=== PATIENT | male | born 1985 ===

== ENCOUNTER 2020-02-15 08:56 | Emergency (ER) | payer OTHER, SELFPAY ==
[2020-02-15 09:10] VITALS: BP 109/61; PULSE 71; RESP 14; TEMP 36.7; O2SAT 97; BMI 22.6
[2020-02-15 09:25] VITALS: BP 101/63; PULSE 72; RESP 14; O2SAT 98
--- NOTE | 2020-02-15 09:30 | W.ED.CHESTPA ---
HPI - Chest Pain General: Chief Complaint: Chest Pain Stated Complaint: chest pain Time Seen by Provider: 02/15/20 09:22 History of Present Illness: HPI narrative: 34-year-old male presents emergency room complaining of chest pain. 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 Began while he was working is reproducible with palpation on the lower portion of the chest its not associated with any radiation of arm pain he is not had any nausea vomiting or diarrhea no diaphoresis. He has no personal history of diabetes hypertension or hyperlipidemia. MD complaint: chest pain Onset (ago): minute(s) Timing of current episode: episodic Prior episodes: No Onset: during exertion Pain location: subxiphoid Pain radiation: none Severity: mild Quality: sharp Relieving factors: rest Exacerbating factors: palpation Associated symptoms: Deny abdominal pain, diaphoresis, dyspnea, fever(s), leg edema, nausea, palpitations, sense of impending doom, syncope or vomiting Review of Systems Const: Denies: fever(s) or diaphoresis ENMT: Denies: throat pain, ear or mastoid pain, nasal discharge or nasal congestion Card: Denies: palpitations or syncope Resp: Denies: dyspnea GI: Denies: abdominal pain, nausea or vomiting : Denies: flank pain, dysuria, urinary frequency or urinary urgency Skin/Breast: Denies: rash or pruritus Physical Exam Const: COMMON NORMALS: no acute distress GENERAL APPEARANCE: cooperative and comfortable ORIENTATION/CONSCIOUSNESS: Yes awake, Yes oriented to person, Yes oriented to place and Yes oriented to time HENMT: COMMON NORMALS: normocephalic, atraumatic and hearing grossly normal bilaterally HEAD & SCALP: normocephalic and atraumatic Neck/C-Spine: COMMON NORMALS: no JVD Resp: COMMON NORMALS: normal respiratory effort, No retractions, No use of accessory muscles and clear to auscultation bilaterally AUSCULTATION: clear to auscultation bilaterally Cardio: COMMON NORMALS: no JVD, regular rate, regular rhythm and No murmurs present (Cardio) RATE: regular rate RHYTHM: regular rhythm GI: COMMON NORMALS: Soft to palpation and No hepatosplenomegaly present AUSCULTATION: Yes normoactive bowel sounds PALPATION: Yes Soft to palpation, No Tenderness to palpation present (GI), No Guarding due to palpation present (GI) and Yes No hepatosplenomegaly present Extremity: COMMON NORMALS: normal to inspection, capillary refill normal, no clubbing, cyanosis or edema, no calf tenderness and no pedal edema Neuro: SENSORIUM/ORIENTATION: Yes oriented to person, Yes oriented to place and Yes oriented to time Skin: COMMON NORMALS: no rashes or lesions noted GENERAL SKIN EXAM: no rashes or lesions noted Course Vital Signs: Vital signs: Vital Signs Temperature 98.1 F 02/15/20 09:10 Pulse Rate 64 02/15/20 11:00 Respiratory Rate 17 02/15/20 11:00 Blood Pressure 108/62 02/15/20 11:00 Pulse Oximetry 98 02/15/20 11:00 MDM - Chest Pain MDM Narrative: Medical decision making narrative: Due to findings chest pain reproducible will discharge home Lab Data: Labs: Lab Results 02/15/20 02/15/20 Range/Units 09:30 09:30 WBC 7.5 (4.0-10.0) 10^3/ uL RBC 4.79 (4.1-5.3) 10^6/u L Hgb 14.3 (11.7-16.6) g/dL Hct 44.5 (42.0-52.0) % MCV 92.9 (80-94) fL MCH 29.9 (28.0-34.0) pg MCHC 32.1 (30.0-36.0) g/dL RDW 12.8 (12.1-15.1) % Plt Count 397 (130-400) 10^3/c mm MPV 10.1 (7.4-10.4) fL Neut % (Auto) 61.5 % Lymph % (Auto) 26.2 % [place] % (Auto) 6.3 % Eos % (Auto) 5.0 % Baso % (Auto) 0.7 % Neut # (Auto) 4.59 (1.8-7.7) 10^3/u L Lymph # (Auto) 2.0 (0.8-4.8) 10^3/u L [place] # (Auto) 0.5 (0.2-0.9) 10^3/u L Eos # (Auto) 0.4 (0.0-0.8) 10^3/u L Baso # (Auto) 0.1 (0.0-0.1) 10^3/u L Nucleated RBC % (a uto) 0 % Nucleated RBCs # 0.0 /100WBC Sodium 140 (136-145) mmol/L Potassium 4.2 (3.5-5.1) mmol/L Chloride 106 (98-107) mmol/L Carbon Dioxide 25 (22-29) mmol/L Anion Gap 13.2 (5-19) BUN 10 (6-20) mg/dL Creatinine 0.9 (0.7-1.2) mg/dL GFR Calculation 97.2 (90-130) mL/min Glucose 94 (65-115) mg/dL Calculated Osmolal ity 289 (285-295) mOsm/k g Calcium 9.5 (8.5-10.5) mg/dL Total Bilirubin 0.2 (0.15-1.2) mg/dL AST 16 (0-40) U/L ALT 24 (0-41) U/L Alkaline Phosphata se 72 (40-130) IU/L Total Protein 6.9 (6.6-8.7) g/dL Albumin 4.6 (3.5-5.2) g/dL Globulin 2.3 (1.3-4.6) g/dL Discharge Plan Discharge Patient Disposition: Home Clinical Impression: Acute chest wall pain Condition: Stable Prescriptions: New diclofenac sodium 75 mg tablet,delayed release (DR/EC) 75 mg PO Q12H PRN (Reason: pain) Qty: 20 RF: 0 Discharge Orders: Discharge Order (Routine); Ordered 02/15/20 Ordered By: Juan Luis Daniels Discharge Diet: Usual diet Discharge Activity: Increase activity as tolerated Activity Restrictions/Additional Instructions: Return if you have worsening problems. Stand Alone Forms: Work/School Release Discharge Date/Time: 02/15/20 11:00 Coding Level of Care Code ED Car Racer for Liz Fwd Exam Comprehensive
--- NOTE | 2020-02-15 09:49 | ECG_ITS ---
[facility] Test Date: 2020-02-15 Pat Name: Eduardo Duenas Department: Room: Gender: Male [employer] Driver: : 1985 Requested By: Juan Luis Brito Order Number: [id number] Merlin MD: Jordan Blanchard M.D. Measurements Intervals [place] Rate: 74 P: 86 IA: 123 QRS: 84 QRSD: 97 T: 70 QT: 361 QTc: 403 Interpretive Statements SINUS RHYTHM WITH SINUS ARRHYTHMIA No previous ECG available for comparison Electronically Signed On 02-15-2020 21:32:15 CDT by Jordan Blanchard M.D. [email or web address]
--- NOTE | 2020-02-15 09:49 | XR_ITS ---
WS: [id number] CHEST XRAY TECHNIQUE: Portable chest. CLINICAL INFORMATION: dyspnea/cough COMPARISON: None. FINDINGS: Heart: Normal cardiac silhouette. Lungs: Lungs are clear. No consolidation or pleural effusion. Bones: Normal visualized bony structures. XR/XR chest 1V portable [id number] IMPRESSION: Normal chest
[2020-02-15 09:59] LABS: Basophils # 0.1 10^3/uL (0.0-0.1); Basophils % 0.7 %; Eosinophils # 0.4 10^3/uL (0.0-0.8); Hematocrit 44.5 % (42.0-52.0); Hemoglobin 14.3 g/dL (11.7-16.6); Lymphocytes % 26.2 %; Mean Corpuscular HGB Conc 32.1 g/dL (30.0-36.0); Mean Corpuscular Hemoglobin 29.9 pg (28.0-34.0); Mean Corpuscular Volume 92.9 fL (80-94); Mean Platelet Volume 10.1 fL (7.4-10.4); Monocytes # 0.5 10^3/uL (0.2-0.9); Monocytes % 6.3 %; Neutrophils # 4.59 10^3/uL (1.8-7.7); Neutrophils % 61.5 %; Nucleated Red Blood Cells % 0 %; Platelet Count 397 10^3/cmm (130-400); Red Blood Count 4.79 10^6/uL (4.1-5.3); Red Cell Distribution Width 12.8 % (12.1-15.1); White Blood Count 7.5 10^3/uL (4.0-10.0)
[2020-02-15 10:14] LABS: Alanine Aminotransferase 24 U/L (0-41); Albumin Level 4.6 g/dL (3.5-5.2); Alkaline Phosphatase 72 IU/L (40-130); Anion Gap 13.2 (5-19); Aspartate Amino Transferase 16 U/L (0-40); Blood Urea Nitrogen 10 mg/dL (6-20); Calcium 9.5 mg/dL (8.5-10.5); Carbon Dioxide 25 mmol/L (22-29); Chloride 106 mmol/L (98-107); Globulin 2.3 g/dL (1.3-4.6); Glomerular Filtration Rate 97.2 mL/min (90-130); Glucose 94 mg/dL (65-115); Osmolality Calculated 289 mOsm/kg (285-295); Potassium 4.2 mmol/L (3.5-5.1); Sodium 140 mmol/L (136-145); Total Bilirubin 0.2 mg/dL (0.15-1.2); Total Protein 6.9 g/dL (6.6-8.7)
[2020-02-15 10:15] VITALS: BP 116/66; PULSE 68; RESP 18; O2SAT 98
[2020-02-15 11:00] VITALS: BP 108/62; PULSE 64; RESP 17; O2SAT 98
== END 2020-02-15 11:00 | disposition home or self-care (01) ==
PROVIDERS: Emergency Provider Family Medicine
DX: R07.89 Other chest pain (principal)
CPT/HCPCS: 12345; 71045; 80053; 85025; 93005; 99283

== ENCOUNTER 2020-02-22 15:35 | Emergency (ER) | payer OTHER, SELFPAY ==
[2020-02-22 15:50] VITALS: PULSE 81; RESP 17; TEMP 36.7; O2SAT 97; BMI 22.6
--- NOTE | 2020-02-22 17:54 | ED_ITS ---
HPI - Skin/Abscess/Foreign Bdy General: Chief complaint: Skin/Abscess/Foreign Body Stated complaint: CYST OUTSIDE OF RECTUM (DOESN'T SPEAK MUCH MALAY Time Seen by Provider: 02/22/20 15:46 History of Present Illness: HPI narrative: Patient is a 34-year-old male who comes to the ED patient with possible abscess rectum. Patient says approximately 4 days ago he noticed a sore bump around his anus. It has progressed over the past couple days larger and more painful. He says that over the last 2 days he has had problems with passing stool due to tender nodule near anus. Yesterday he sat down and passed a little bit of stool and when he wiped there was a little bit of red blood on the tissue paper. Pain is described as mild, but whenever he walks or sits down he can feel the pressure on his rectum. Patient does say that his family has a history of cancer and his uncle from colon cancer. Associated symptoms: Deny chills, fever(s), nausea or vomiting Review of Systems Const: Denies: fever(s), chills or fatigue Eyes: Denies: change in vision or eye discomfort ENMT: Denies: throat pain, odynophagia, nasal discharge or nasal congestion Card: Denies: chest pain, palpitations, edema, swelling of feet/ankles, dyspnea on exertion or orthopnea Resp: Denies: dyspnea, productive cough or non-productive cough GI: Reports: change in bowel habits, pain on defecation and rectal pain; Denies: abdominal pain, nausea, vomiting, diarrhea, constipation or hematochezia : Denies: flank pain, difficulty urinating, dysuria or hematuria Musc: Denies: neck pain, back pain or extremity swelling Skin/Breast: Denies: rash or new lesions Neuro: Denies: headache(s), numbness in extremities or weakness in extremities PFS ED PFSH: Social History Smoking and tobacco status: never smoked Physical Exam Const: COMMON NORMALS: no acute distress, patient oriented x3, healthy appearing and alert GENERAL APPEARANCE: cooperative and comfortable HENMT: COMMON NORMALS: normocephalic HEAD & SCALP: normocephalic MOUTH: Normal oral and palatal mucosa present THROAT: posterior oropharynx normal and uvula midline Eye: COMMON NORMALS: Equal, round and reactive pupils present PUPIL: Yes Equal, round and reactive pupils present Neck/C-Spine: COMMON NORMALS: supple GENERAL: Yes normal visual inspection Resp: COMMON NORMALS: normal respiratory effort, No retractions, No use of accessory muscles and clear to auscultation bilaterally AUSCULTATION: clear to auscultation bilaterally Cardio: COMMON NORMALS: regular rate, regular rhythm, S1 normal heart sound present, S2 normal heart sound present, No gallops present (Cardio), No clicks present (Cardio), No murmurs present (Cardio) and Peripheral pulses 2+ throughout RATE: regular rate RHYTHM: regular rhythm HEART SOUNDS: S1 normal heart sound present and S2 normal heart sound present PERIPHERAL PULSES: Peripheral pulses 2+ throughout GI: COMMON NORMALS: Normal to inspection, nondistended, normoactive bowel sounds present, Soft to palpation, non-tender and no masses PALPATION: Yes Soft to palpation RECTAL EXAM: Yes hemorrhoids and Yes tenderness OTHER: Patient had a half a centimeter erythematous tender nodule on the anus. possible hemorrhoid : COMMON NORMALS: Yes no CVA tenderness BLADDER/KIDNEY EXAM: Yes no CVA tenderness Back/Pelvis: COMMON NORMALS: no CVA tenderness Extremity: COMMON NORMALS: normal to inspection and no pedal edema Neuro: COMMON NORMALS: patient oriented x3 and moves all extremities SENSORIUM/ORIENTATION: Yes alert Skin: GENERAL SKIN EXAM: dry skin Course Vital Signs: Vital signs: Vital Signs Temperature 98.1 F 02/22/20 15:50 Pulse Rate 81 02/22/20 15:50 Respiratory Rate 18 02/22/20 20:24 Pulse Oximetry 97 02/22/20 15:50 MDM - Skin/Abscess/Foreign Bdy MDM Narrative: Medical decision making narrative: Patient is a 34-year-old mal e comes to the ED with rectal pain. Physical exam healthy 34-year-old male in no acute distress or pain. Exam of anus showed small tender erythematous nodule on the rectum likely external hemorrhoid. White blood cell count 12.3 but rest of CBC and CMP was unremarkable. CRP 2.3 CT of the abdomen showed no acute findings-ruling out any perianal abscess. Patient diagnosed with external hemorrhoids and sent home with prescription for MiraLAX and information on sitz bath. Patient was also given a course of antibiotics to treat any possible infection or abscess that could be forming. Return to ED precautions given. Follow-up with PCP in 7 to 10 days. Patient understood and agreed with plan. Lab Data: Attestation: I reviewed the patient's lab results. Labs: Lab Results 02/22/20 02/22/20 02/22/20 Range/Units 18:21 18:21 18:21 WBC 12.3 H (4.0-10.0) 10^3/ uL RBC 4.93 (4.1-5.3) 10^6/u L Hgb 14.8 (11.7-16.6) g/dL Hct 45.5 (42.0-52.0) % MCV 92.3 (80-94) fL MCH 30.0 (28.0-34.0) pg MCHC 32.5 (30.0-36.0) g/dL RDW 12.9 (12.1-15.1) % Plt Count 351 (130-400) 10^3/c mm MPV 9.9 (7.4-10.4) fL Neut % (Auto) 65.6 % Lymph % (Auto) 24.1 % [place] % (Auto) 4.9 % Eos % (Auto) 4.6 % Baso % (Auto) 0.6 % Neut # (Auto) 8.07 H (1.8-7.7) 10^3/u L Lymph # (Auto) 3.0 (0.8-4.8) 10^3/u L [place] # (Auto) 0.6 (0.2-0.9) 10^3/u L Eos # (Auto) 0.6 (0.0-0.8) 10^3/u L Baso # (Auto) 0.1 (0.0-0.1) 10^3/u L Nucleated RBC % (a uto) 0 % Nucleated RBCs # 0.0 /100WBC Sodium 141 (136-145) mmol/L Potassium 4.3 (3.5-5.1) mmol/L Chloride 105 (98-107) mmol/L Carbon Dioxide 24 (22-29) mmol/L Anion Gap 16.3 (5-19) BUN 9 (6-20) mg/dL Creatinine 0.7 (0.7-1.2) mg/dL GFR Calculation 129.9 (90-130) mL/min Glucose 96 (65-115) mg/dL Calculated Osmolal ity 291 (285-295) mOsm/k g Lactic Acid 0.8 (0.5-2.2) mmol/L Calcium 9.6 (8.5-10.5) mg/dL Total Bilirubin 0.2 (0.15-1.2) mg/dL AST 31 (0-40) U/L ALT 41 (0-41) U/L Alkaline Phosphata se 79 (40-130) IU/L C-Reactive Protein 2.3 (0.0-4.9) mg/L Total Protein 8.1 (6.6-8.7) g/dL Albumin 5.1 (3.5-5.2) g/dL Globulin 3.0 (1.3-4.6) g/dL Imaging Data^: CT Abd/Pel: Attestation: I personally reviewed and interpreted this imaging study as follows: Radiologist's impression: [place] [address] CT Scan Report Signed Patient: Eduardo Duenas Unit #: [id number] : 1985 Age/Sex: 34 / M ADM Date: 02/22/20 Loc: ER Room/Bed: Attending Dr: Ordering Provider/Ordering MD: Klever Keen Date of Service: 02/22/20 Procedure(s): CT abdomen pelvis w con* [id number] Accession Number(s): [id number] Report Number: [id number] PROCEDURE INFORMATION: Exam: CT Abdomen And Pelvis With Contrast Exam date and time: 02/22/2020 6:31 PM Age: 34 years old Clinical indication: Abdominal pain; Other: Possible perianal abscess; Prior surgery; Surgery type: Appy; Patient HX: Painful bm, blood in stool TECHNIQUE: Imaging protocol: Computed tomography of the abdomen and pelvis with intravenous contrast. Radiation optimization: All CT scans at this facility use at least one of these dose optimization techniques: automated exposure control; mA and/or kV adjustment per patient size (includes targeted exams where dose is matched to clinical indication); or iterative reconstruction. Contrast material: OMNI 300; Contrast volume: 95 ml; Contrast route: INTRAVENOUS (IV); COMPARISON: No relevant prior studies available. RADIATION DOSE METRICS: Total DLP (mGy-cm): 311 FINDINGS: Lungs: Limited assessment of the lung bases fails to reveal evidence for active cardiopulmonary process. Liver: Unremarkable. No mass. Gallbladder and bile ducts: Normal. No calcified stones. No ductal dilation. Pancreas: Normal. No ductal dilation. Spleen: Normal. No splenomegaly. Adrenals: Normal. No mass. Kidneys and ureters: Normal. No hydronephrosis. Stomach and bowel: Unremarkable. No obstruction. No mucosal thickening. Appendix: Status post appendectomy. Intraperitoneal space: Unremarkable. No free air. No significant fluid collection. Vasculature: Unremarkable. No abdominal aortic aneurysm. Lymph nodes: Unremarkable. No enlarged lymph nodes. Urinary bladder: Unremarkable as visualized. Reproductive: Unremarkable as visualized. Bones/joints: No visible active or acute osseous abnormality. Soft tissues: No visible perianal abscess or fistulous tract. CT/CT abdomen pelvis w con* [id number] IMPRESSION: Currently no visible evidence for active or acute abdominal or pelvic pathologic process. Radiation Dose CTDIVOL = (mGy): DLP = 311 (mGy-cm) Dictated By: Andres Long Signed By: Andres Long Signed Date/Time: 02/22/201953 DD/ 51 Discharge Plan Discharge Patient Disposition: Home Clinical Impression: Hemorrhoids, external Condition: Stable Prescriptions: New Augmentin 500-125 mg tablet 1 tab PO BID 7 Days Qty: 14 RF: 0 Miralax 17 gram/dose powder 17 gm PO DAILY PRN (Reason: constipation) Qty: 119 RF: 0 No Action diclofenac sodium 75 mg tablet,delayed release (DR/EC) 75 mg PO Q12H PRN (Reason: pain) Qty: 20 RF: 0 Discharge Orders: Discharge Order (Routine); Ordered 02/22/20 Ordered By: Klever Keen Discharge Diet: Regular Discharge Activity: Resume usual activity Patient Instructions: Hemorrhoids (ED), Sitz Bath (GEN) Activity Restrictions/Additional Instructions: Follow-up with primary care physician as directed in 7-10 days. Take medications as prescribed. Take MiraLAX to help with bowel movements. Take full course of antibiotic as prescribed. Return to the ER or your medical provider if condition worsens. Please read and understand discharge instructions. If any questions, please ask. Discharge Date/Time: 02/22/20 20:24 Coding Level of Care Code ED Business Control Manager for Chg Fwd Exam Comprehensive
--- NOTE | 2020-02-22 18:05 | CTR_ITS ---
PROCEDURE INFORMATION: Exam: CT Abdomen And Pelvis With Contrast Exam date and time: 02/22/2020 6:31 PM Age: 34 years old Clinical indication: Abdominal pain; Other: Possible perianal abscess; Prior surgery; Surgery type: Appy; Patient HX: Painful bm, blood in stool TECHNIQUE: Imaging protocol: Computed tomography of the abdomen and pelvis with intravenous contrast. Radiation optimization: All CT scans at this facility use at least one of these dose optimization techniques: automated exposure control; mA and/or kV adjustment per patient size (includes targeted exams where dose is matched to clinical indication); or iterative reconstruction. Contrast material: OMNI 300; Contrast volume: 95 ml; Contrast route: INTRAVENOUS (IV); COMPARISON: No relevant prior studies available. RADIATION DOSE METRICS: Total DLP (mGy-cm): 311 FINDINGS: Lungs: Limited assessment of the lung bases fails to reveal evidence for active cardiopulmonary process. Liver: Unremarkable. No mass. Gallbladder and bile ducts: Normal. No calcified stones. No ductal dilation. Pancreas: Normal. No ductal dilation. Spleen: Normal. No splenomegaly. Adrenals: Normal. No mass. Kidneys and ureters: Normal. No hydronephrosis. Stomach and bowel: Unremarkable. No obstruction. No mucosal thickening. Appendix: Status post appendectomy. Intraperitoneal space: Unremarkable. No free air. No significant fluid collection. Vasculature: Unremarkable. No abdominal aortic aneurysm. Lymph nodes: Unremarkable. No enlarged lymph nodes. Urinary bladder: Unremarkable as visualized. Reproductive: Unremarkable as visualized. Bones/joints: No visible active or acute osseous abnormality. Soft tissues: No visible perianal abscess or fistulous tract. CT/CT abdomen pelvis w con* [id number] IMPRESSION: Currently no visible evidence for active or acute abdominal or pelvic pathologic process. Radiation Dose CTDIVOL = (mGy): DLP = 311 (mGy-cm)
[2020-02-22] MEDS: sodium chloride 0.9% 1,000 ML 999 ML IV (18:16)
[2020-02-22 18:22] VITALS: RESP 18
[2020-02-22 18:29] LABS: Basophils # 0.1 10^3/uL (0.0-0.1); Basophils % 0.6 %; Eosinophils # 0.6 10^3/uL (0.0-0.8); Eosinophils % 4.6 %; Hematocrit 45.5 % (42.0-52.0); Hemoglobin 14.8 g/dL (11.7-16.6); Lymphocytes % 24.1 %; Mean Corpuscular HGB Conc 32.5 g/dL (30.0-36.0); Mean Corpuscular Volume 92.3 fL (80-94); Mean Platelet Volume 9.9 fL (7.4-10.4); Monocytes # 0.6 10^3/uL (0.2-0.9); Monocytes % 4.9 %; Neutrophils # 8.07 10^3/uL (1.8-7.7); Neutrophils % 65.6 %; Nucleated Red Blood Cells % 0 %; Platelet Count 351 10^3/cmm (130-400); Red Blood Count 4.93 10^6/uL (4.1-5.3); Red Cell Distribution Width 12.9 % (12.1-15.1); White Blood Count 12.3 10^3/uL (4.0-10.0)
[2020-02-22 18:45] LABS: Lactic Sepsis W/Reflex 0.8 mmol/L (0.5-2.2)
[2020-02-22] MEDS: iohexol 300 mg/mL 100 mL Btl IV (19:06)
[2020-02-22 19:10] LABS: Alanine Aminotransferase 41 U/L (0-41); Albumin Level 5.1 g/dL (3.5-5.2); Alkaline Phosphatase 79 IU/L (40-130); Anion Gap 16.3 (5-19); Aspartate Amino Transferase 31 U/L (0-40); Blood Urea Nitrogen 9 mg/dL (6-20); C Reactive Protein 2.3 mg/L (0.0-4.9); Calcium 9.6 mg/dL (8.5-10.5); Carbon Dioxide 24 mmol/L (22-29); Chloride 105 mmol/L (98-107); Creatinine Clr Calc Pharmacy 135.1962; Glomerular Filtration Rate 129.9 mL/min (90-130); Glucose 96 mg/dL (65-115); Osmolality Calculated 291 mOsm/kg (285-295); Potassium 4.3 mmol/L (3.5-5.1); Sodium 141 mmol/L (136-145); Total Bilirubin 0.2 mg/dL (0.15-1.2); Total Protein 8.1 g/dL (6.6-8.7)
[2020-02-22 20:00] VITALS: RESP 18
[2020-02-22 20:24] VITALS: RESP 18
== END 2020-02-22 20:24 | disposition home or self-care (01) ==
PROVIDERS: Emergency Provider Physician Assistant
DX: K64.4 Residual hemorrhoidal skin tags (principal)
CPT/HCPCS: 12345; 74177; 80053; 83605; 85025; 86140; 87040; 96360; 99283; J7030; Q9967

== ENCOUNTER 2020-03-15 16:14 | Emergency (ER) | payer OTHER, SELFPAY ==
[2020-03-15 16:19] VITALS: BP 122/82; PULSE 79; RESP 16; TEMP 36.5; O2SAT 97; BMI 21.2
--- NOTE | 2020-03-15 16:39 | XR_ITS ---
WS: [id number] XR chest 1V portable [id number] REASON FOR EXAM: fever FINDINGS: The chest is unchanged compared to previous examination of 02/15/2020. The heart and mediastinum are within normal limits. No active pulmonary parenchymal or pleural disease is identified. The bony thorax is intact. XR/XR chest 1V portable [id number] IMPRESSION: No acute chest abnormality.
--- NOTE | 2020-03-15 16:49 | W.ED.GENADLT ---
HPI - General Adult General: Chief complaint: General Medical Stated complaint: MUSCLE ACHES,SORE THROAT Time Seen by Provider: 03/15/20 16:21 Source: patient Mode of arrival: ambulatory Limitations: no limitations History of Present Illness: HPI narrative: 34-year-old male states he has had cough congestion along with chills. He states is also a sore throat. He denies any fever or shortness of breath. Patient is well-appearing here and is not been requiring any increased oxygen. He has had no vomiting or diarrhea. He denies any weakness. He denies any worsening or improving factors. Associated symptoms: Deny chest pain, dyspnea, headache(s), nausea, rash or vomiting Review of Systems Const: Reports: chills Eyes: Denies: blurry vision or eye discomfort ENMT: Reports: throat pain Card: Denies: chest pain Resp: Reports: non-productive cough; Denies: dyspnea GI: Denies: abdominal pain, nausea, vomiting or diarrhea : Denies: dysuria Musc: Denies: neck pain or back pain Skin/Breast: Denies: rash Neuro: Denies: headache(s) Psych: Denies: depression Zoltan/Lymph: Denies: easy bruising All/Imm: Denies: urticaria PFSH ED PFSH: Social History Smoking and tobacco status: never smoked Physical Exam Const: COMMON NORMALS: no acute distress, patient oriented x3 and healthy appearing HENMT: COMMON NORMALS: normocephalic and atraumatic HEAD & SCALP: normocephalic and atraumatic Eye: COMMON NORMALS: Equal, round and reactive pupils present and EOMs intact bilaterally PUPIL: Yes Equal, round and reactive pupils present Neck/C-Spine: COMMON NORMALS: full ROM and supple Chest: COMMONS NORMALS: normal inspection of the chest and normal palpation of entire chest wall Resp: COMMON NORMALS: normal respiratory effort, No retractions, No use of accessory muscles and clear to auscultation bilaterally AUSCULTATION: clear to auscultation bilaterally Cardio: COMMON NORMALS: regular rate, regular rhythm and No murmurs present (Cardio) RATE: regular rate RHYTHM: regular rhythm GI: COMMON NORMALS: Normal to inspection, nondistended, normoactive bowel sounds present, Soft to palpation, non-tender and no masses PALPATION: Yes Soft to palpation Extremity: COMMON NORMALS: normal to inspection and full ROM Neuro: COMMON NORMALS: patient oriented x3, moves all extremities and no focal motor deficits Psych: COMMON NORMALS: mental status grossly normal, Normal thought process present and cooperative THOUGHT PROCESS: Normal thought process present Skin: COMMON NORMALS: no rashes or lesions noted and no wounds GENERAL SKIN EXAM: no rashes or lesions noted Course Vital Signs: Vital signs: Vital Signs Temperature 97.7 F 03/15/20 16:19 Pulse Rate 79 03/15/20 16:19 Respiratory Rate 16 03/15/20 16:19 Blood Pressure 122/82 03/15/20 16:19 Pulse Oximetry 97 03/15/20 17:14 MDM - General Adult MDM Narrative: Medical decision making narrative: Patient presents here with cough congestion likely viral upper respiratory infection. His flu is negative and x-ray is negative as well. He is well-appearing here. We will send off a Covid he is to self quarantine until resolved. Patient is stable for discharge and return if worsening. Lab Data: Labs: Lab Results 03/15/20 Range/Units 17:20 Influenza Type A A g Negative (Negative) Influenza Type B A g Negative (Negative) Imaging Data^: CXR: Radiologist's impression: [place] [address] XRay Report Signed Patient: Eduardo Duenas Unit #: [id number] : 1985 Age/Sex: 34 / M ADM Date: 03/15/20 Loc: ER Room/Bed: Attending Dr: Ordering Provider/Ordering MD: Kaelyn Turk MD Date of Service: 03/15/20 Procedure(s): XR chest 1V portable [id number] Accession Number(s): [id number] Report Number: [id number] WS: [id number] XR chest 1V portable [id number] REASON FOR EXAM: fever FINDINGS: The chest is unchanged compared to previous examination of 02/15/2020. The heart and mediastinum are within normal limits. No active pulmonary parenchymal or pleural disease is identified. The bony thorax is intact. XR/XR chest 1V portable [id number] IMPRESSION: No acute chest abnormality. Discharge Plan Discharge Patient Disposition: Home Clinical Impression: Upper respiratory infection Qualifiers: URI type: unspecified URI Qualified Code(s): J06.9 - Acute upper respiratory infection, unspecified Condition: Stable Prescriptions: No Action Viral Rodriguez Severe Cold-Flu 6.25-5-10-325 mg/15 mL Liquid 6.25 ml PO Q4H PRN (Reason: Cold Symptoms) RF: 0 Discharge Orders: Discharge Order (Routine); Ordered 03/15/20 Ordered By: Kaelyn Turk Discharge Diet: Advance as tolerated Discharge Activity: Resume usual activity Patient Instructions: Upper Respiratory Infection (ED) Coding Level of Care Code ED District Loss Prevention Manager for Liz Fwd Exam Comprehensive
[2020-03-15 17:14] VITALS: O2SAT 97
[2020-03-15] MEDS: dexamethasone 4 mg/mL INJ 8 MG IM (17:23)
[2020-03-15 18:04] LABS: Influenza A by IFA Negative (Negative); Influenza B by IFA Negative (Negative)
[2020-03-15 19:00] VITALS: BP 126/71; PULSE 76; O2SAT 99
[2020-03-18 15:13] LABS: Quest SARS-CoV-2 RNA NOT DETECTED (NOT DETECTED)
--- NOTE | 2020-03-18 16:47 | PC.NURSE ---
Pt called and notified of negative COVID result.
== END 2020-03-15 18:47 | disposition home or self-care (01) ==
PROVIDERS: Emergency Provider Emergency Medicine
DX: J06.9 Acute upper respiratory infection, unspecified (principal)
CPT/HCPCS: 12345; 71045; 87635; 87804; 96372; 99282; 99283; J1100

== ENCOUNTER 2021-09-03 12:19 | Emergency (ER) | payer SELFPAY ==
[2021-09-03 12:29] VITALS: BP 117/76; PULSE 73; RESP 12; TEMP 36.6; O2SAT 98; BMI 23.2
--- NOTE | 2021-09-03 12:51 | ED_ITS ---
HPI - General Adult General: Chief complaint: General Medical Stated complaint: Having pains in body Time Seen by Provider: 09/03/21 12:51 History of Present Illness: Mr. Duenas is a 36-year-old gentleman without significant past medical history presents to the emergency department due to pain in the rectal area. He does endorse a history of known hemorrhoids and previously had presented to emergency department for similar however reports over the past 2 to 3 days a different feeling. He noticed a bump and redness on the side of his anus which is very painful. This is painful with sitting movement as well as pain with bowel movements. He has noticed mild blood in stool. He has not had to strain significantly. He denies signs systemic illness. Intensity symptoms is moderate to severe. Mild improvement with symptom treatment at home. No other specific changes in health, exacerbating, or alleviating factors identified. Onset (ago): day(s) Location: genitals Severity: moderate and severe Quality: stabbing Pain Consistency: constant Relieving factors: none Exacerbating factors: immobilization and movement Review of Systems General: Reports: 10 or more systems reviewed and unremarkable except in HPI and below PFSH ED PFSH: Medical History No significant past medical history Surgical History No significant past surgical history Social History Smoking and tobacco status: never smoked Physical Exam Const: COMMON NORMALS: alert GENERAL APPEARANCE: cooperative, well developed and in distress (uncomfortable appearing due to pain); not ill appearing HENMT: COMMON NORMALS: normocephalic and atraumatic HEAD & SCALP: normocephalic and atraumatic THROAT: posterior oropharynx normal Eye: COMMON NORMALS: conjunctivae normal CONJUNCTIVA: Yes conjunctivae normal SCLERA: sclerae normal Neck/C-Spine: COMMON NORMALS: supple GENERAL: Yes trachea midline Resp: COMMON NORMALS: clear to auscultation bilaterally EFFORT & INSPECTION: Yes able to speak in complete sentences AUSCULTATION: clear to auscultation bilaterally Cardio: COMMON NORMALS: regular rate and regular rhythm RATE: regular rate RHYTHM: regular rhythm GI: COMMON NORMALS: Soft to palpation PALPATION: Yes Soft to palpation and No Tenderness to palpation present (GI) PERCUSSION: normal to percussion : OTHER: erythematous, raised, tender non vesicular lesion at approximately 9 oclock position approximately 8 cm from anus Extremity: GENERAL: Yes normal exam except as noted and No edema Neuro: COMMON NORMALS: moves all extremities SENSORIUM/ORIENTATION: Yes alert and No Orientation impaired Psych: COMMON NORMALS: mental status grossly normal and Normal thought process present THOUGHT PROCESS: Normal thought process present Course ED course: - Patient was seen and evaluated by me at bedside - Patient placed on cardiac monitors, IV access obtained - Initial evaluation notable for exam as noted, cardiology for history of prese nt - Labs personally interpreted by me -Analgesia given - Given location of lesion, clinical appearance as well as patient's reported pain/bleeding with defecation CT imaging is warranted to rule out deeper tract infection including perirectal/perianal abscess Imaging notable for no drainable fluid collection identified - Upon serial reexamination after treatment the patient was improved - Based on patient history, evaluation, and testing as interpreted the most likely cause of the patient's condition is cellulitis in the perianal region - The results of ED evaluation were discussed with the patient including prescriptions and/or symptomatic cares (if applicable) including appropriate and responsible use, followup plan, and return precautions. The patient verbalized understanding and felt safe for discharge. - Patient discharged in satisfactory condition. Note: Click bubbles or prepopulated lanza in note writing are used for assistance with data collection and billing and are inherently more limited than narrative and other text portions of this note. Please use narrative for additional clinical history and defer to narrative/free test for any case of contradictory information. If information appears in only free text or click bubble it should be considered present or absent as reported. Please contact note continuity writer for clarifications of clinical information or contradictory information. MDM is a brief summary, contradictory or erroneous seeming information should be clarified and full note should be reviewed. Vital Signs: Vital signs: Vital Signs Temperature 97.8 F 09/03/21 12:29 Pulse Rate 67 09/03/21 15:18 Respiratory Rate 16 09/03/21 13:34 Blood Pressure 116/74 09/03/21 15:18 Pulse Oximetry 99 09/03/21 15:18 MDM - General Adult Medical Decision Making 36-year-old gentleman presenting with painful lesion on buttocks near the anus. No drainable fluid collection identified. Plan to discharge with antibiotics, satisfactory for outpatient management with strict return precautions. Medical Records I reviewed the patient's medical records. Lab Data I reviewed the patient's lab results. Radiology Impressions Pelvis CT 09/03/21 13:27 IMPRESSION: 1. No perirectal tract or abscess. 2. No soft tissue stranding or inflammation in the mesorectal fat. Discharge Plan Discharge Patient Disposition: Home Clinical Impression: Perianal cellulitis, Hemorrhoids Condition: Stable Prescriptions: New oxycodone 5 mg capsule 5 mg PO Q4H PRN (Reason: pain) Qty: 6 0RF clindamycin HCl 300 mg capsule 300 mg PO TID 10 Days Qty: 30 0RF lidocaine 5 % ointment 1 applic topical TID PRN (Reason: pain) Qty: 30 0RF Senna Lax 8.6 mg tablet 8.6 mg PO DAILY PRN (Reason: constipation) Qty: 20 0RF Discharge Orders: Discharge ED (Routine); Ordered 09/03/21 Ordered By: Jeremy Reaves Discharge Diet: Usual diet Discharge Activity: Increase activity as tolerated Activity Restrictions/Additional Instructions: Thank you for visiting the emergency department. You were seen and evaluated for pain in the rectal area. The exact cause of the symptoms is unclear, there is evidence of skin infection without drainable abscess or deep tracking abscess. You will be treated with antibiotics. Some component of your symptoms may be related to hemorrhoids however I do not believe that this is the main cause. Please follow-up with your primary care provider. Please use medications as directed. Return to the emergency department for worsening symptoms, signs of systemic illness, or anything else that you are concerned about and feel needs emergency department evaluation. Stand Alone Forms: Work/School Release Coding Level of Care Code ED Gis Software Developer for Liz Walden
[2021-09-03 13:00] VITALS: BP 120/78; PULSE 80; RESP 16; O2SAT 99
--- NOTE | 2021-09-03 13:27 | CT_ITS ---
WS: [id number] CT PELVIS WITH CONTRAST. HISTORY: abscess, ?perirectal/perianal/deep tracking TECHNIQUE: Contiguous imaging is performed of the pelvis with contrast. Coronal and sagittal reformat s are reviewed. All CT scans at [facility] use at least one of these dose optimization techni ques: automated exposure control; mA and/or kV adjustment per patient size (includes targeted exams w here dose is matched to clinical indication); or iterative reconstruction. Contrast: Omnipaque 300; 95 mL IV. DLP: 387.39 mGy.cm COMPARISON: 02/22/2020 No tract or perirectal abscess is identified. There is a normal enhancement of the soft tissues of th e pelvis. No significant inflammation of the mesorectal fat. No perineum fat stranding. Visualized soft tissues in the pelvis are normal. Normal enhancement of the iliac arteries. There is no fluid or abscess. No diverticular disease. Normally distended urinary bladder. No osseous abnormal ities. CT/CT pelvis w con* [id number] IMPRESSION: 1. No perirectal tract or abscess. 2. No soft tissue stranding or inflammation in the mesorectal fat.
[2021-09-03 13:34] VITALS: RESP 16; O2SAT 99
[2021-09-03] MEDS: morphine 4 mg/mL SDV 1 mL IVP (13:34)
[2021-09-03] MEDS: iohexol 300 mg/mL 100 mL Btl IV (13:47)
[2021-09-03 15:18] VITALS: BP 116/74; PULSE 67; O2SAT 99
--- NOTE | 2021-09-03 16:35 | PC.NURSE ---
Called in order for sennosides 8.6mg tablet by mouth daily PRN (20) tablets to [facility]
== END 2021-09-03 15:20 | disposition home or self-care (01) ==
PROVIDERS: Emergency Provider Emergency Medicine
DX: K61.1 Rectal abscess (principal); K64.9 Unspecified hemorrhoids
CPT/HCPCS: 72193; 96374; 99283; J2270; Q9967

== ENCOUNTER 2022-04-27 17:41 | Emergency (ER) | payer SELFPAY ==
[2022-04-27 17:42] VITALS: BP 146/92; PULSE 90; RESP 18; TEMP 36.3; O2SAT 99
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
[2022-04-27 18:15] VITALS: BP 135/78; PULSE 102; RESP 22; O2SAT 98
[2022-04-27] MEDS: fentaNYL 50 mcg/mL INJ 2mL IVP (18:16)
[2022-04-27] MEDS: ketorolac 30 mg/mL INJ 15 MG IVP (18:16)
[2022-04-27] MEDS: acetaminophen 1,000 MG/100 ML PIGGYBACK 400 MG IV (18:24)
[2022-04-27 20:00] VITALS: BP 115/72; PULSE 72; RESP 14; O2SAT 97
[2022-04-27 20:06] VITALS: RESP 17
[2022-04-27] MEDS: morphine 4 mg/mL SDV 1 mL IVP (20:06)
[2022-04-27] MEDS: oxyCODONE 5 mg IR Tab/Cap 20 MG PO (20:58)
== END 2022-04-27 21:00 | disposition home or self-care (01) ==
PROVIDERS: Emergency Provider Emergency Medicine
DX: T20.17XA Burn of first degree of neck, initial encounter (principal); T20.12XA Burn of first degree of lip(s), initial encounter; T23.102A Burn of first degree of left hand, unspecified site, initial encounter; T23.101A Burn of first degree of right hand, unspecified site, initial encounter; T22.112A Burn of first degree of left forearm, initial encounter; T22.111A Burn of first degree of right forearm, initial encounter; X08.8XXA Exposure to other specified smoke, fire and flames, initial encounter
CPT/HCPCS: 71045; 96374; 96375; 99284; J0131; J1885; J2270; J2930; J3010

== ENCOUNTER → 2022-12-04 16:01 | Outpatient (BNVA) | payer MEDICAID, SELFPAY | PROVIDERS: PCP Family Medicine; Visit Provider Family Medicine | DX: E16.2 Hypoglycemia, unspecified (principal); J30.2 Other seasonal allergic rhinitis; R51.9 Headache, unspecified | CPT/HCPCS: 80053; 80061; 83036; 84439; 84443; 85025 ==

== ENCOUNTER 2022-12-13 00:23 | Emergency (ER) | payer MEDICAID, SELFPAY ==
[2022-12-13 00:28] VITALS: BP 118/70; PULSE 74; RESP 18; O2SAT 97; BMI 24.3
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
[2022-12-13] MEDS: naproxen 500 mg Tablet PO (00:53)
[2022-12-13] MEDS: tetanus-dipt-pertussis 0.5 mL SDV IM (01:00)
[2022-12-13 01:17] VITALS: BP 118/70; PULSE 83; RESP 18; O2SAT 97
== END 2022-12-13 01:23 | disposition home or self-care (01) ==
PROVIDERS: Emergency Provider Emergency Medicine; PCP Family Medicine
DX: S80.12XA Contusion of left lower leg, initial encounter (principal); S51.812A Laceration without foreign body of left forearm, initial encounter; W26.8XXA Contact with other sharp object(s), not elsewhere classified, initial encounter; Z23 Encounter for immunization
CPT/HCPCS: 73590; 90471; 90715; 99283

== ENCOUNTER 2023-03-11 11:49 | Emergency (ER) | payer MEDICAID, SELFPAY ==
[2023-03-11 11:53] VITALS: BP 115/71; PULSE 71; RESP 17; TEMP 36.9; O2SAT 98; BMI 24.3
--- NOTE | 2023-03-11 11:58 | W.ED.BACK ---
HPI - Back Pain/Injury General: Chief Complaint: Back Pain/Injury Stated Complaint: back injury, might be worker comp Time Seen by Provider: 03/11/23 11:53 Source: patient Mode of arrival: ambulatory Limitations: no limitations History of Present Illness: Patient is a 37-year-old male who presents to ED today with complaint of lower back pain. Patient states yesterday while at work he was lifting a heavy bundle of shingles when he immediately felt something to his lower back. Patient states he has had pain since. There is no radicular pain at this time. He is not complaining of any saddle anesthesia or problems with defecation/urination. He is ambulatory here in the emergency department without difficulty or assistance. Patient states he is unsure whether this is Worker's Comp or not as his employer has stated they are not going to cover the injury. MD elicited complaint: back pain Pertinent past history: recent trauma Onset (ago): day(s) Timing: constant Severity: severe Pain scale (0-10): 20 Similar Symptoms Previously: No Location: lumbar spine Radiation: none Exacerbating factors: movement and lifting Relieving factors: none Context: while lifting Associated symptoms: Deny abdominal pain, chills, difficulty walking, dysuria, fatigue, fever(s) or urinary urgency Work related injury: Yes Review of Systems Const: Denies: fever(s), chills, body aches, fatigue or malaise Card: Denies: chest pain Resp: Denies: dyspnea GI: Denies: abdominal pain : Denies: flank pain, difficulty urinating, dysuria, urinary frequency, urinary urgency or urinary hesitancy Musc: Reports: back pain; Denies: neck pain, extremity pain, extremity swelling, joint pain or joint swelling Skin/Breast: Denies: rash Neuro: Denies: headache(s), numbness in extremities, weakness in extremities, sensory changes or difficulty walking PFS ED PFSH: Medical History No significant past medical history Surgical History No significant past surgical history Social History Smoking and tobacco/nicotine status: current every day tobacco/nicotine user cigarettes Alcohol intake: never Substance/Drug Use: never Physical Exam Const: COMMON NORMALS: no acute distress, average body habitus, patient oriented x3, no limitations, healthy appearing, alert and well nourished Chest: COMMONS NORMALS: normal inspection of the chest and normal palpation of entire chest wall Resp: COMMON NORMALS: normal respiratory effort and clear to auscultation bilaterally AUSCULTATION: clear to auscultation bilaterally Cardio: COMMON NORMALS: regular rate and regular rhythm RATE: regular rate RHYTHM: regular rhythm GI: COMMON NORMALS: Normal to inspection, nondistended, normoactive bowel sounds present, Soft to palpation, non-tender, No hepatosplenomegaly present and no masses PALPATION: Yes Soft to palpation and Yes No hepatosplenomegaly present : COMMON NORMALS: Yes no CVA tenderness BLADDER/KIDNEY EXAM: Yes no CVA tenderness Back/Pelvis: COMMON NORMALS: no CVA tenderness THORACIC SPINE/UPPER BACK: Yes normal to inspection, Yes thoracic ROM normal, No thoracic spinal tenderness, No paraspinal muscle tenderness and No paraspinal muscle spasm LUMBAR SPINE/LOWER BACK: Yes normal to inspection, Yes lumbar spinal tenderness, No paraspinal muscle tenderness, No paraspinal muscle spasm, No mass present and Yes straight leg raise negative bilaterally PELVIS: Yes buttocks normal and No sciatic notch tenderness SACROILIAC JOINTS: Yes SI joints normal SACRUM: no tenderness COCCYX: no tenderness Extremity: COMMON NORMALS: normal to inspection and full ROM GENERAL: Yes normal exam except as noted Neuro: COMMON NORMALS: patient oriented x3, moves all extremities, no focal motor deficits, no sensory deficits noted and gait normal SENSORIUM/ORIENTATION: Yes alert SENSORY EXAM: Yes other (normal sensation to bilateral LEs) MOTOR EXAM: 5/5 motor strength present throughout Skin: COMMON NORMALS: no rashes or lesions noted GENERAL SKIN EXAM: no rashes or lesions noted Course Vital Signs: Vital signs: Vital Signs Temperature 98.5 F 03/11/23 11:53 Pulse Rate 71 03/11/23 11:53 Respiratory Rate 17 03/11/23 11:53 Blood Pressure 115/71 03/11/23 11:53 Pulse Oximetry 98 03/11/23 11:53 Oxygen Delivery Me thod Room Air 03/11/23 11:53 MDM - Back Pain/Injury Medical Decision Making XR negative. Will treat with anti-inflammatories, steroids, muscle relaxers. Recommend follow-up with primary care next week. If he speaks to his employer and they would like to change his status to a Worker's Comp injury then he is to call the emergency department and we can let registration know to change this. Differential Diagnosis Likely lumbar radiculopathy and strain of lumbar region Medical Records I reviewed the patient's medical records. Labs Radiology Impressions Lumbar Spine X-Ray 03/11/23 12:32 IMPRESSION: No acute findings. All radiology interpretation(s) finalized by discharge Discharge Plan Discharge Patient Disposition: Home Clinical Impression: Low back strain Qualifiers: Encounter type: initial encounter Qualified Code(s): S39.012A - Strain of muscle, fascia and tendon of lower back, initial encounter Condition: Stable Prescriptions: New ibuprofen 600 mg tablet 600 mg PO Q6H PRN (Reason: pain) Qty: 20 0RF cyclobenzaprine 10 mg tablet 10 mg PO TID Qty: 14 0RF Medrol (Nikhil) 4 mg tablets,dose pack See Rx Instructions .ROUTE .COMPLEX Qty: 21 0RF Rx Instructions: orally per package directions Discharge Orders: Discharge ED (Routine); Ordered 03/11/23 Ordered By: Debbie Zabala Referrals: Jose Crockett MD [Primary Care Provider] - Patient Instructions: Low Back Strain (ED) Activity Restrictions/Additional Instructions: As we discussed please follow-up with your primary care provider next week for re-evaluation if symptoms do not seem to be improving. Do not work while taking the cyclobenzaprine as it is a muscle relaxer and can cause drowsiness. Stand Alone Forms: Work/School Release Coding Level of Care Code ED Data Examination Clerk for Liz Walden
--- NOTE | 2023-03-11 12:32 | XRR_ITS ---
PROCEDURE INFORMATION: Exam: XR Lumbosacral Spine Exam date and time: 03/11/2023 12:44 PM Age: 37 years old Clinical indication: Low back pain; Additional info: Injury hurt lower back lifting TECHNIQUE: Imaging protocol: Radiologic exam of the lumbosacral spine. Views: 2 or 3 views. COMPARISON: CT pelvis w con* [id number] 09/03/2021 1:45 PM FINDINGS: Bones/joints: Normal. No acute fracture. Normal alignment. Soft tissues: Unremarkable. XR/XR lumbar spine 2-3V* [id number] IMPRESSION: No acute findings.
[2023-03-11] MEDS: ketorolac 60 mg/2 mL INJ IM (12:56)
[2023-03-11] MEDS: dexamethasone 10 mg/mL INJ 6 MG IM (12:57)
[2023-03-11] MEDS: orphenadrine 30 mg/mL Inj 2 mL 60 MG IM (12:57)
== END 2023-03-11 14:33 | disposition home or self-care (01) ==
PROVIDERS: Emergency Provider Physician Assistant; PCP Family Medicine
DX: S39.012A Strain of muscle, fascia and tendon of lower back, initial encounter (principal); F17.210 Nicotine dependence, cigarettes, uncomplicated; X50.0XXA Overexertion from strenuous movement or load, initial encounter
CPT/HCPCS: 72100; 96372; 99284; J1100; J1885; J2360

== ENCOUNTER 2023-06-10 11:58 | Outpatient (CLI) | payer MEDICAID, SELFPAY ==
--- NOTE | 2023-06-10 12:15 | MR_ITS ---
WS: [id number] MRI LUMBAR SPINE NONCONTRAST TECHNIQUE: Sagittal T1, T2 and STIR imaging. Axial T1 and T2 imaging. CLINICAL INFORMATION: lower back pain COMPARISON: None. FINDINGS: Mild lumbar curve. No acute compression. Disc bulging worse at L5-S1 with a shallow left paracentral protrusion and an annular fissure. Tiny central protrusion at T11-T12. L1-L2: Mild facet arthropathy. Spinal canal and foramen are patent.. L2-L3: Mild facet arthropathy. Spinal canal and foramen are patent. L3-L4: No significant disc bulging. Mild facet arthropathy. Spinal canal and foramen are patent. L4-L5: No significant disc bulging. Moderate facet arthropathy. Spinal canal and foramen are patent. L5-S1: LEFT paracentral disc protrusion impinges the traversing LEFT S1 nerve root in the subarticula r recess. Spinal canal is patent. Mild facet arthropathy. Foramen are patent. Visualized pelvic bony structures: Normal. Paravertebral soft tissues: Normal. IMPRESSION: 1. Mild lumbar curve. No acute compression. 2. LEFT paracentral disc protrusion L5-S1 impinges the traversing LEFT S1 nerve root in the subartic ular recess. Recommend correlation LEFT S1 nerve root symptoms. Small annular fissure at this level. 3. Tiny central protrusion T11-T12. 4. Moderate facet arthropathy L4-L5. Mild facet arthropathy L3-L4 and L5-S1. 5. No other acute findings.
== END 2023-06-10 11:59 | disposition home or self-care (01) ==
LOC: RAD 11:59
PROVIDERS: PCP Family Medicine; Visit Provider Family Medicine
DX: M51.27 Other intervertebral disc displacement, lumbosacral region (principal); M51.24 Other intervertebral disc displacement, thoracic region; M47.817 Spondylosis without myelopathy or radiculopathy, lumbosacral region
CPT/HCPCS: 72148

== ENCOUNTER 2023-07-01 14:54 | Emergency (ER) | payer MEDICAID, SELFPAY ==
[2023-07-01 15:04] VITALS: BP 119/83; PULSE 74; RESP 14; TEMP 36.8; O2SAT 99
--- NOTE | 2023-07-01 15:11 | W.ED.URI ---
HPI - URI/Sore Throat General: Chief Complaint: Upper Respiratory Infection Stated Complaint: sore throat, headache Time Seen by Provider: 07/01/23 15:11 History of Present Illness: 38-year-old male patient comes in with upper respiratory infection and sore throat. Patient reports symptoms for 2 days. Patient appears nontoxic. Patient reports headache, chills, and sore throat. Patient denies any chronic medical problems. Associated symptoms: Reports chills Review of Systems General: Reports: 10 or more systems reviewed and unremarkable except in HPI and below Const: Reports: chills and malaise ENMT: Reports: throat pain PFSH ED PFSH: Medical History No significant past medical history Surgical History No significant past surgical history Social History Smoking and tobacco/nicotine status: current every day tobacco/nicotine user cigarettes Alcohol intake: never Substance/Drug Use: never Physical Exam Const: COMMON NORMALS: alert HENMT: COMMON NORMALS: normocephalic HEAD & SCALP: normocephalic Neck/C-Spine: COMMON NORMALS: full ROM Resp: COMMON NORMALS: normal respiratory effort and clear to auscultation bilaterally AUSCULTATION: clear to auscultation bilaterally Cardio: COMMON NORMALS: regular rate and regular rhythm RATE: regular rate RHYTHM: regular rhythm GI: COMMON NORMALS: non-tender Back/Pelvis: COMMON NORMALS: thoracic and lumbar spine normal to inspection Extremity: COMMON NORMALS: full ROM Neuro: SENSORIUM/ORIENTATION: Yes alert Skin: COMMON NORMALS: turgor normal GENERAL SKIN EXAM: turgor normal Course Vital Signs: Vital signs: Vital Signs Temperature 98.3 F 07/01/23 15:04 Pulse Rate 74 07/01/23 15:04 Respiratory Rate 14 07/01/23 15:04 Blood Pressure 119/83 07/01/23 15:04 Pulse Oximetry 99 07/01/23 15:04 Oxygen Delivery Me thod Room Air 07/01/23 15:04 MDM - URI/Sore Throat Medical Decision Making Patient presents with sore throat x 2 days. On exam posterior pharynx has some cobblestoning but otherwise unremarkable. Lungs are clear to auscultation. Vital signs are normal. Differential diagnosis includes but not limited to postnasal drip, allergic rhinitis, viral syndrome, strep pharyngitis. Strep test is negative. Patient was given a dose of dexamethasone for his symptoms. Patient was encouraged to drink plenty of water and fluids use acetaminophen and ibuprofen for pain and discomfort. Return to ED for new concerns. Patient reported understanding agreed to plan. Lab Data Laboratory Results Group A Strep Rapid Negative (Negative) 07/01/23 15:08 No radiology studies performed this visit Discharge Plan Discharge Patient Disposition: Home Clinical Impression: Upper respiratory infection Qualifiers: URI type: acute pharyngitis Pharyngitis/tonsillitis etiology: unspecified etiology Qualified Code(s): J02.9 - Acute pharyngitis, unspecified Condition: Stable Prescriptions: No Action tizanidine 4 mg capsule 4 mg PO TID PRN (Reason: muscle spasticity) Qty: 60 2RF meloxicam 15 mg tablet 15 mg PO DAILY Qty: 60 0RF lidocaine [Salonpas (lidocaine)] 4 % adhesive patch,medicated 1 patch topical TID PRN (Reason: pain) Qty: 30 1RF Discharge Orders: Discharge ED (Routine); Ordered 07/01/23 Ordered By: Selvin Suarez Referrals: Jose Crockett MD [Primary Care Provider] - Discharge Diet: Usual diet Discharge Activity: Increase activity as tolerated Patient Instructions: Pharyngitis (ED) Activity Restrictions/Additional Instructions: Drink lots of fluids. Use acetaminophen and/or ibuprofen as needed for pain and discomfort. Use throat lozenges for further pain relief. Follow-up with primary care in 1 week for recheck. Return to ED for new concerns. Coding Level of Care Code ED Vamp Presser for Liz Walden
[2023-07-01 15:26] LABS: Rapid Strep A Test Negative (Negative)
[2023-07-01] MEDS: dexamethasone 10 mg/mL INJ IM (15:42)
== END 2023-07-01 15:53 | disposition home or self-care (01) ==
PROVIDERS: Emergency Provider Nurse Practitioner Family; PCP Family Medicine
DX: J02.9 Acute pharyngitis, unspecified (principal); F17.210 Nicotine dependence, cigarettes, uncomplicated
CPT/HCPCS: 87081; 87880; 96372; 99284; J1100

== ENCOUNTER 2023-08-10 15:39 | Emergency (ER) | payer MEDICAID, SELFPAY ==
[2023-08-10 15:42] VITALS: BP 127/84; PULSE 110; RESP 16; TEMP 37.3; O2SAT 97; BMI 24.3
--- NOTE | 2023-08-10 15:48 | XR_ITS ---
WS: [id number] Examination: XR chest 1V portable [id number] Reason for Exam: cough/congestion Date: August 10, 2023 Comparison: April 27, 2022 Findings: The cardiomediastinal silhouette is within normal limits. There is no consolidation or effusion. Impression: No acute lung process is appreciated.
--- NOTE | 2023-08-10 16:27 | W.ED.URI ---
HPI - URI/Sore Throat General: Chief Complaint: Fever Stated Complaint: chest pains, fever, congestion Time Seen by Provider: 08/10/23 15:47 Source: patient and family Mode of arrival: ambulatory Limitations: no limitations History of Present Illness: Patient is a 38-year-old male who presents to ED today with a complaint of subjective fevers, chills, body aches, productive cough nasal congestion, sinus pain/pressure, headache over the past 2 days. No vomiting or diarrhea. MD elicited complaint: fever, cough, nasal congestion and sinus pain Onset (ago): day(s) Consistency: constant Severity: moderate Description of mucous: clear Able to tolerate fluids by mouth: Yes Exacerbating factors: nothing Relieving factors: nothing Associated symptoms: Reports chills, fever(s), nasal congestion and sinus pain; Deny abdominal pain, chest pain, diarrhea, ear or mastoid pain, headache(s), nausea or vomiting Treatments prior to arrival: none Review of Systems Const: Reports: fever(s), chills and body aches; Denies: fatigue Eyes: Denies: change in vision, blurry vision, photophobia, eye discomfort or eye discharge ENMT: Reports: nasal discharge, nasal congestion and sinus pain; Denies: throat pain, enlarged tonsils, odynophagia, swelling of lips/tongue, oral sores, ear or mastoid pain, ear discharge or post nasal drip Card: Denies: chest pain Resp: Denies: dyspnea, productive cough or non-productive cough GI: Denies: abdominal pain, nausea, vomiting or diarrhea : Denies: flank pain, dysuria or hematuria Musc: Denies: neck pain, back pain, extremity pain or joint pain Skin/Breast: Denies: rash Neuro: Denies: headache(s), numbness in extremities, weakness in extremities, sensory changes or dizziness All/Imm: Denies: facial swelling or seasonal rhinorrhea PFSH ED PFSH: Medical History No significant past medical history Surgical History No significant past surgical history Social History Smoking and tobacco/nicotine status: current every day tobacco/nicotine user cigarettes Alcohol intake: never Substance/Drug Use: never Physical Exam Const: COMMON NORMALS: average body habitus, patient oriented x3, no limitations, healthy appearing, alert and well nourished GENERAL APPEARANCE: cooperative and ill appearing (mildly) ORIENTATION/CONSCIOUSNESS: Yes awake, Yes oriented to person, Yes oriented to place and Yes oriented to time HENMT: COMMON NORMALS: normocephalic, atraumatic, hearing grossly normal bilaterally, external ears normal, EAC's normal, TM's normal bilaterally, Normal external nose present and moist oral mucous membranes HEAD & SCALP: normal to inspection, normocephalic and atraumatic FACE & SINUS: normal facial exam and sinus tenderness NOSE: Normal external nose present EXTERNAL EAR: Yes external ears normal EXTERNAL AUDITORY CANAL: EAC's normal TYMPANIC MEMBRANE: TM's normal bilaterally MOUTH: Normal oral and palatal mucosa present and lip normal THROAT: tonsils normal, uvula midline and posterior oropharynx abnormal erythema Eye: COMMON NORMALS: Equal, round and reactive pupils present, EOMs intact bilaterally and conjunctivae normal CONJUNCTIVA: Yes conjunctivae normal PUPIL: Yes Equal, round and reactive pupils present Neck/C-Spine: COMMON NORMALS: no lymphadenopathy Resp: COMMON NORMALS: normal respiratory effort and clear to auscultation bilaterally AUSCULTATION: clear to auscultation bilaterally Cardio: COMMON NORMALS: regular rhythm RATE: tachycardic (mild; feels warmer than stated temp) RHYTHM: regular rhythm GI: COMMON NORMALS: Normal to inspection, nondistended, normoactive bowel sounds present, Soft to palpation and non-tender PALPATION: Yes Soft to palpation : COMMON NORMALS: Yes no CVA tenderness BLADDER/KIDNEY EXAM: Yes no CVA tenderness Back/Pelvis: COMMON NORMALS: no CVA tenderness and thoracic and lumbar spine normal to inspection Extremity: GENERAL: Yes normal exam except as noted Neuro: BOUCHRA COMA SCALE: document GCS findings Bouchra coma scale eye opening: Spontaneous Bouchra coma scale verbal response: Orientated [place] coma scale motor response: Obey commands Bouchra coma scale total score: 15 COMMON NORMALS: patient oriented x3 SENSORIUM/ORIENTATION: Yes alert, Yes oriented to person, Yes oriented to place and Yes oriented to time Skin: COMMON NORMALS: no rashes or lesions noted GENERAL SKIN EXAM: no rashes or lesions noted Course Vital Signs: Vital signs: Vital Signs Temperature 99.2 F 04/01/24 15:42 Pulse Rate 100 08/10/23 17:09 Respiratory Rate 16 08/10/23 15:42 Blood Pressure 127/79 08/10/23 17:09 Pulse Oximetry 97 08/10/23 17:09 Oxygen Delivery Me thod Room Air 08/10/23 15:42 MDM - URI/Sore Throat Medical Decision Making Patient here with signs and symptoms consistent with a viral illness. Flu and COVID are negative. CXR is unremarkable. Discussed symptomatic and conservative therapies at home. Return to ED precautions given. Differential Diagnosis Likely upper respiratory infection, sinusitis, viral infection, bronchitis, influenza and pharyngitis Medical Records I reviewed the patient's medical records. Lab Data I reviewed the patient's lab results. Laboratory Results Influenza Type A Ag negative (Negative) 08/10/23 16:10 Influenza Type B Ag negative (Negative) 08/10/23 16:10 SARS-CoV-2 Ag (Rapid) negative (Negative) 08/10/23 16:10 All radiology interpretation(s) finalized by discharge Discharge Plan Discharge Patient Disposition: Home Clinical Impression: Viral upper respiratory tract infection with cough Condition: Stable Prescriptions: No Action tizanidine 4 mg capsule 4 mg PO TID PRN (Reason: muscle spasticity) Qty: 60 2RF meloxicam 15 mg tablet 15 mg PO DAILY Qty: 60 0RF lidocaine [Salonpas (lidocaine)] 4 % adhesive patch,medicated 1 patch topical TID PRN (Reason: pain) Qty: 30 1RF Discharge Orders: Discharge ED (Routine); Ordered 08/10/23 Ordered By: Debbie Zabala Referrals: Jose Crockett MD [Primary Care Provider] - Patient Instructions: Upper Respiratory Infection (DC) Coding Level of Care Code ED Management Accounts Manager for Liz Fwrere
[2023-08-10 16:57] LABS: Influenza A by IFA negative (Negative); Influenza B by IFA negative (Negative); SARS Covid-2 Antigen negative (Negative)
[2023-08-10 17:09] VITALS: BP 127/79; PULSE 100; O2SAT 97
== END 2023-08-10 17:14 | disposition home or self-care (01) ==
PROVIDERS: Emergency Provider Physician Assistant; PCP Family Medicine
DX: J06.9 Acute upper respiratory infection, unspecified (principal); R05.9 Cough, unspecified; Z11.52 Encounter for screening for COVID-19; F17.210 Nicotine dependence, cigarettes, uncomplicated
CPT/HCPCS: 71045; 87426; 87804; 99284

== ENCOUNTER 2024-04-03 12:29 | Emergency (ER) | payer MEDICAID, SELFPAY ==
[2024-04-03 13:01] VITALS: BP 106/74; PULSE 109; RESP 18; TEMP 37.1; O2SAT 99; BMI 23.6
[2024-04-03 13:38] LABS: Basophils % 0.3 %; Eosinophils % 0.1 %; Hematocrit 46.8 % (37-53); Lymphocytes % 6.9 %; Mean Corpuscular HGB Conc 33.5 g/dL (30-55); Mean Corpuscular Hemoglobin 29.7 pg (27-33); Mean Corpuscular Volume 88.5 fl (82-101); Mean Platelet Volume 9.4 fL (7.4-10.4); Monocytes # 0.9 10^3/uL (0.2-0.9); Monocytes % 5.9 %; Neutrophils # 12.92 10^3/uL (1.8-7.7); Neutrophils % 86.5 %; Nucleated Red Blood Cells % 0 %; Platelet Count 366 10^3/cmm (157-399); Red Blood Count 5.29 10^6/uL (3.85-5.65); Red Cell Distribution Width 12.6 % (12.1-15.1); White Blood Count 14.94 10^3/uL (3.29-11.43)
[2024-04-03 13:42] LABS: Bilirubin Urine Negative (Negative); Blood Urine 2+ (Negative); Glucose Urine UA Negative (Normal); Ketones Urine Trace (Negative); Leukocyte Esterase Urine Negative (Negative); Nitrate Urine Negative (Negative); Protein Urine 2+ (Negative); Urine Appearance Clear (CLEAR); Urine Color Yellow (Yellow)
[2024-04-03 13:47] LABS: Add Urine Microscopic? YES; Bacteria Urine None Seen /hpf; Hyaline Casts Urine 1.21 /lpf; Squamous Epithelial Cell Urine 0-5 /hpf (0-5); WBC Urine 0-5 /hpf (0-5)
[2024-04-03 13:50] LABS: Add Urine Culture? Yes; Specific Gravity, Urine 1.034 (1.005-1.030)
[2024-04-03 13:54] LABS: Alanine Aminotransferase 28 U/L (0-41); Albumin Level 4.4 g/dL (3.5-5.2); Alkaline Phosphatase 87 U/L (40-130); Anion Gap 16.1 (5-19); Aspartate Amino Transferase 20 U/L (0-40); Blood Urea Nitrogen 10 mg/dL (6-20); Calcium 9.6 mg/dL (8.5-10.5); Carbon Dioxide 21 mmol/L (22-29); Chloride 102 mmol/L (98-107); Creatinine Clr Calc Pharmacy 98.9412; Globulin 3.1 g/dL (1.3-4.6); Glomerular Filtration Rate 84.1 mL/min (90-130); Glucose 110 mg/dL (65-115); Lipase 16 U/L (13-60); Osmolality Calculated 280 mOsm/kg (285-295); Potassium 4.1 mmol/L (3.5-5.1); Sodium 135 mmol/L (136-145); Total Bilirubin 0.3 mg/dL (0.15-1.2); Total Protein 7.5 g/dL (6.6-8.7)
--- NOTE | 2024-04-03 13:55 | W.ED.ABDPA2 ---
HPI - Abdominal Pain General: Chief Complaint: Abdominal Pain Stated Complaint: abd pains, fever, NVD Time Seen by Provider: 04/03/24 12:56 History of Present Illness: 38-year-old male presents to the emergency room with abdominal pain. States it began last night after he ate. He had some bright red blood in his stools. He is having a low-grade fever complains of epigastric right upper quadrant abdominal pain. He has noticed a little bit of blood in the stool and little bit of blood after he wipes after having a bowel movement. He is not having hematemesis or coffee-ground emesis. No dysuria urgency or frequency. Associated Symptoms: Reports diarrhea and nausea; Denies chills, dysuria, fever(s), hematochezia and melena Related Data Previous Rx's Medication Instructions Recorded ciprofloxacin HCl 500 mg tablet 500 mg PO BID #20 tabs 04/03/24 (Cipro) hydrocodone 5 mg-acetaminophen 325 1 tab PO Q6H PRN pain #20 tabs 04/03/24 mg tablet metronidazole 500 mg tablet 500 mg PO BID 7 days #14 tabs 04/03/24 promethazine 25 mg tablet 25 mg PO Q6H PRN nausea and 04/03/24 vomiting #20 tabs Allergies Allergy/AdvReac Type Severity Reaction Status Date / Time No Known Allergies Allergy Verified 04/03/24 13:05 Review of Systems Const: Denies: fever(s) or chills Card: Denies: chest pain Resp: Denies: dyspnea GI: Reports: abdominal pain, nausea and diarrhea; Denies: hematochezia or melena : Denies: dysuria, urinary frequency or urinary urgency Musc: Denies: neck pain or back pain Skin/Breast: Denies: rash PFSH ED PFSH: Medical History No significant past medical history Surgical History No significant past surgical history Social History Smoking and tobacco/nicotine status: current every day tobacco/nicotine user cigarettes Alcohol intake: never Substance/Drug Use: never Physical Exam Const: GENERAL APPEARANCE: cooperative ORIENTATION/CONSCIOUSNESS: Yes awake, Yes oriented to person, Yes oriented to place and Yes oriented to time HENMT: COMMON NORMALS: normocephalic, atraumatic and hearing grossly normal bilaterally HEAD & SCALP: normocephalic and atraumatic Resp: COMMON NORMALS: normal respiratory effort, No retractions, No use of accessory muscles and clear to auscultation bilaterally AUSCULTATION: clear to auscultation bilaterally Cardio: COMMON NORMALS: regular rate, regular rhythm and No murmurs present (Cardio) RATE: regular rate RHYTHM: regular rhythm GI: COMMON NORMALS: No hepatosplenomegaly present AUSCULTATION: Yes normoactive bowel sounds PALPATION: Yes Tenderness to palpation present (GI) (Diffuse abdominal tenderness), No Guarding due to palpation present (GI) and Yes No hepatosplenomegaly present Extremity: COMMON NORMALS: normal to inspection, capillary refill normal, no clubbing, cyanosis or edema, no calf tenderness and no pedal edema Neuro: SENSORIUM/ORIENTATION: Yes oriented to person, Yes oriented to place and Yes oriented to time Skin: COMMON NORMALS: no rashes or lesions noted GENERAL SKIN EXAM: no rashes or lesions noted Course Vital Signs: Vital signs: Vital Signs Temperature 98.7 F 04/03/24 13:01 Pulse Rate 69 04/03/24 17:51 Respiratory Rate 18 04/03/24 13:01 Blood Pressure 118/85 04/03/24 17:51 Pulse Oximetry 98 04/03/24 17:51 Oxygen Delivery Me thod Room Air 04/03/24 16:55 MDM - Abdominal Pain Medical Decision Making CT shows pancolitis. Patient does have a mild elevation white count. Recommend clear liquid diet started on Cipro and Flagyl pain and nausea medications to use as needed if not improving in the next several days follow-up. Should have follow-up in 1 to 2 weeks his primary Doctor even if it is improving to reevaluate. Lab Data 04/03/24 13:25 04/03/24 13:25 Labs/Radiology: Radiology Impressions Abdomen/Pelvis CT 04/03/24 14:03 IMPRESSION: 1. Mild nonspecific pancolitis, as described above. 2. Additional findings, as above. COMMENTS: Consistent with the [employer]'s Incidental Findings Committee white paper (J Am Vilma Radiol 2018): Any incidental renal lesion less than 1 cm or classified as too small to characterize, or any incidental cystic renal lesion characterized as simple-appearing, is likely benign. No follow-up imaging is recommended for these lesions per consensus recommendations based on imaging criteria. Laboratory Results WBC 14.94 10^3/uL (3.29-11.43) H 04/03/24 13:25 RBC 5.29 10^6/uL (3.85-5.65) 04/03/24 13:25 Hgb 15.70 g/dL (11.27-16.99) 04/03/24 13:25 Hct 46.8 % (37-53) 04/03/24 13:25 MCV 88.5 fl (82-101) 04/03/24 13:25 MCH 29.7 pg (27-33) 04/03/24 13:25 MCHC 33.5 g/dL (30-55) 04/03/24 13:25 RDW 12.6 % (12.1-15.1) 04/03/24 13:25 Plt Count 366 10^3/cmm (157-399) 04/03/24 13:25 MPV 9.4 fL (7.4-10.4) 04/03/24 13:25 Neut % (Auto) 86.5 % 04/03/24 13:25 Lymph % (Auto) 6.9 % 04/03/24 13:25 [place] % (Auto) 5.9 % 04/03/24 13:25 Eos % (Auto) 0.1 % 04/03/24 13:25 Baso % (Auto) 0.3 % 04/03/24 13:25 Neut # (Auto) 12.92 10^3/uL (1.8-7.7) H 04/03/24 13:25 Lymph # (Auto) 1.0 10^3/uL (0.8-4.8) 04/03/24 13:25 [place] # (Auto) 0.9 10^3/uL (0.2-0.9) 04/03/24 13:25 Eos # (Auto) 0.0 10^3/uL (0.0-0.8) 04/03/24 13:25 Baso # (Auto) 0.0 10^3/uL (0.0-0.1) 04/03/24 13:25 Nucleated RBC % (auto) 0 % 04/03/24 13:25 Nucleated RBCs # 0.0 /100WBC 04/03/24 13:25 Sodium 135 mmol/L (136-145) L 04/03/24 13:25 Potassium 4.1 mmol/L (3.5-5.1) 04/03/24 13:25 Chloride 102 mmol/L (98-107) 04/03/24 13:25 Carbon Dioxide 21 mmol/L (22-29) L 04/03/24 13:25 Anion Gap 16.1 (5-19) 04/03/24 13:25 BUN 10 mg/dL (6-20) 04/03/24 13:25 Creatinine 1.0 mg/dL (0.7-1.2) 04/03/24 13:25 GFR Calculation 84.1 mL/min (90-130) L 04/03/24 13:25 Glucose 110 mg/dL (65-115) 04/03/24 13:25 Calculated Osmolality 280 mOsm/kg (285-295) L 04/03/24 13:25 Calcium 9.6 mg/dL (8.5-10.5) 04/03/24 13:25 Total Bilirubin 0.3 mg/dL (0.15-1.2) 04/03/24 13:25 AST 20 U/L (0-40) 04/03/24 13:25 ALT 28 U/L (0-41) 04/03/24 13:25 Alkaline Phosphatase 87 U/L (40-130) 04/03/24 13:25 Total Protein 7.5 g/dL (6.6-8.7) 04/03/24 13:25 Albumin 4.4 g/dL (3.5-5.2) 04/03/24 13:25 Globulin 3.1 g/dL (1.3-4.6) 04/03/24 13:25 Lipase 16 U/L (13-60) 04/03/24 13:25 Urine Color Yellow (Yellow) 04/03/24 13:20 Urine Appearance Clear (CLEAR) 04/03/24 13:20 Urine pH 6.0 (5-7) 04/03/24 13:20 Ur Specific [place] 1.034 (1.005-1.030) H 04/03/24 13:20 Urine Protein 2+ (Negative) A 04/03/24 13:20 Urine Glucose (UA) Negative (Normal) 04/03/24 13:20 Urine Ketones Trace (Negative) 04/03/24 13:20 Urine Blood 2+ (Negative) A 04/03/24 13:20 Urine Nitrate Negative (Negative) 04/03/24 13:20 Urine Bilirubin Negative (Negative) 04/03/24 13:20 Urine Urobilinogen 1.0 mg/dL (Negative) 04/03/24 13:20 Ur Leukocyte Esterase Negative (Negative) 04/03/24 13:20 Urine RBC 11-20 /hpf (0-2) H 04/03/24 13:20 Urine WBC 0-5 /hpf (0-5) 04/03/24 13:20 Ur Squamous Epith Cells 0-5 /hpf (0-5) 04/03/24 13:20 Amorphous Sediment Not Reportable 04/03/24 13:20 Urine Bacteria None seen /hpf (NONE) 04/03/24 13:20 Hyaline Casts 1.21 /lpf 04/03/24 13:20 All radiology interpretation(s) finalized by discharge Discharge Plan Discharge Patient Disposition: Home Clinical Impression: Colitis Condition: Stable Prescriptions: New ciprofloxacin HCl [Cipro] 500 mg tablet 500 mg PO BID Qty: 20 0RF metronidazole 500 mg tablet 500 mg PO BID 7 Days Qty: 14 0RF hydrocodone-acetaminophen 5-325 mg tablet 1 tab PO Q6H PRN (Reason: pain) Qty: 20 0RF promethazine 25 mg tablet 25 mg PO Q6H PRN (Reason: nausea and vomiting) Qty: 20 0RF Discharge Orders: Discharge ED (Routine); Ordered 04/03/24 Ordered By: Juan Luis Daniels Referrals: Jose Crockett MD [Primary Care Provider] - Discharge Diet: Clear Liquid Discharge Activity: Increase activity as tolerated Patient Instructions: Opioid Safety, Pain Management Activity Restrictions/Additional Instructions: Thank you for choosing [facility] for your healthcare needs today. It is very important that you follow up as instructed or that you return to the Emergency Department should you have concerns or if your condition changes or worsens in any way. You are seen in the emergency room with abdominal pain and cramping. CT shows evidence of pancolitis. There was some blood in your urine but no identified stone on the CT. Recommend clear liquid diet for the next 24 to 48 hours. You can use the pain medications as well as the promethazine as needed for symptoms also recommend starting ciprofloxacin and metronidazole. If not improving some in the next 4 to 5 days follow-up with your primary care doctor. Return if you have worsening symptoms. Stand Alone Forms: Work/School Release Coding Level of Care Code ED Chief Physical Therapist for Liz Walden
[2024-04-03 13:56] VITALS: BP 121/80; PULSE 79; O2SAT 94
[2024-04-03] MEDS: iohexol 350 mg/mL 500 mL Btl (per mL) IV (14:02)
--- NOTE | 2024-04-03 14:03 | CTR_ITS ---
PROCEDURE INFORMATION: Exam: CT Abdomen And Pelvis With Contrast Exam date and time: 04/03/2024 2:01 PM Age: 38 years old Clinical indication: Fever and nausea and vomiting; Abdominal pain; Periumbilical; Prior surgery; Surgery date: 6+ months; Surgery type: Appendix; Additional info: Periumbilical pain, diarrhea, n/v TECHNIQUE: Imaging protocol: Computed tomography of the abdomen and pelvis with contrast. Axial, coronal and sagittal reformatted images were created and reviewed. Radiation optimization: All CT scans at this facility use at least one of these dose optimization techniques: automated exposure control; mA and/or kV adjustment per patient size (includes targeted exams where dose is matched to clinical indication); or iterative reconstruction. Contrast material: OMNIPAQUE 350; Contrast volume: 80 ml; Contrast route: INTRAVENOUS (IV); COMPARISON: CT pelvis w con* [id number] 09/03/2021 1:45 PM RADIATION DOSE METRICS: Total DLP (mGy-cm): 461 FINDINGS: Liver: 3 mm low-density hepatic lesion, too small to characterize. Gallbladder and biliary ducts: No radiodense gallstones. No biliary ductal dilatation. Pancreas: Unremarkable. Spleen: Unremarkable. Adrenal glands: Normal. No mass. Kidneys and ureters: 5 mm low-density left renal lesion, too small to characterize. No radiodense calculi. No hydronephrosis. Stomach and bowel: Mild, diffuse colonic wall thickening with associated mural and pericolonic edema. No obstruction. No pneumatosis. Appendix: Status post appendectomy. Intraperitoneal space: No free fluid. No organized fluid collection. No free air. Vasculature: Unremarkable. No aneurysm. Lymph nodes: Small mesenteric lymph nodes, likely reactive. No pathologically enlarged lymph nodes. Urinary bladder: Mild circumferential urinary bladder wall thickening, likely secondary to underdistention. Reproductive: Unremarkable. Bones/joints: No acute osseous abnormality. Mild degenerative changes. Soft tissues: Unremarkable. CT/CT abdomen pelvis w con* [id number] IMPRESSION: 1. Mild nonspecific pancolitis, as described above. 2. Additional findings, as above. COMMENTS: Consistent with the [employer]'s Incidental Findings Committee white paper (J Am Vilma Radiol 2018): Any incidental renal lesion less than 1 cm or classified as too small to characterize, or any incidental cystic renal lesion characterized as simple-appearing, is likely benign. No follow-up imaging is recommended for these lesions per consensus recommendations based on imaging criteria.
[2024-04-03] MEDS: ondansetron 2 mg/ML SDV 2 mL 4 MG IVP (14:12)
[2024-04-03] MEDS: morphine 4 mg/mL SDV 1 mL IVP ×2 (14:13→17:13)
[2024-04-03 14:15] VITALS: BP 126/80; PULSE 102; O2SAT 98
[2024-04-03 16:55] VITALS: BP 125/80; PULSE 94; O2SAT 98
[2024-04-03 17:51] VITALS: BP 118/85; PULSE 69; O2SAT 98
== END 2024-04-03 17:55 | disposition home or self-care (01) ==
PROVIDERS: Emergency Provider Family Medicine; PCP Family Medicine
DX: K52.9 Noninfective gastroenteritis and colitis, unspecified (principal)
CPT/HCPCS: 36415; 74177; 80053; 81001; 83690; 85025; 87086; 96374; 96375; 96376; 99285; J2270; J2405